=== PATIENT | male | born 1955 | race Caucasian/White ===

== ENCOUNTER → 2018-04-07 | Outpatient (CLI) | payer OTHER ==
[~2018-04-07] MED LIST: BACLOFEN10 MG PO; BALSALAZIDE DI750 MG PO; COUMADIN1 MG PO; DOCUSATE SODIU100 MG PO; FINASTERIDE5 MG PO; HYDROCODON-ACE1 EA11 PO; IOPAMIDOL 370 MG/ML 200 ML INFUS..BTL INJ ONE; LEVAQUIN500 MG PO; LOVENOX60 MG/0.6 SC; MELOXICAM15 MG PO; SODIUM CHLORIDE 0.9% 50ML 50 ML ONE; ULTRAM50 MG PO; XARELTO10 MG PO; eliquis PO
[2018-04-07 10:45] LABS: BLOOD UREA NITROGEN 9 mg/dL (7-26); BUN/CREATININE RATIO 11 (6-25); CREATININE, SERUM 0.84 mg/dL (0.72-1.25); EST GLOMERULAR FILTRATION RATE > 60 ML/MIN (60-)
--- NOTE | 2018-04-07 11:43 | Diagnostic Imaging Report ---
PROCEDURE:CT CHEST WITH CONTRAST COMPARISON:[facility], [place], CT, CT CHEST W, 10/03/2015, 14:37. [facility], [place], CT, CT CHEST W, 09/08/2016, 16:12. INDICATIONS:CHEST PAIN, history of pulmonary emboli TECHNIQUE: Axial CTA images of the chest were obtained from the lung apices to the adrenal glands. Coronal and sagittal reformations were made available for review. 100 cc of contrast was administered. RADIATION DOSE: Total DLP: 576.8 mGy*cm Estimated effective dose: (DLP x 0.014 x size factor) mSv FINDINGS: Vessels:No filling defects in the pulmonary arteries to the segmental level. The main pulmonary artery measures 2.2 cm. The aorta is normal in diameter. Mild part of coronary artery calcifications. Lungs: Right lung: No evidence of nodule or infiltrate. Left lung: No evidence of nodule or infiltrate. Chronic atelectasis/scarring the posterior costophrenic angle is stable. Airways: Normal morphology and widely patent. No bronchial thickening Pleura:No pleural effusion or pneumothorax. Heart \T\ Mediastinum:The heart is normal in size. No pericardial effusion. The esophagus is normal. Lymph nodes: No enlarged axillary, subclavicular, mediastinal, or hilar lymph nodes. Thyroid/base of neck: Unremarkable. Upper abdomen:Multiple diverticula in the visualized colon without associated inflammation. A cyst in segment 4 of the liver is stable and measures 13 mm. The remainder of the visualized structures are unremarkable. Musculoskeletal:Mild degenerative changes of the spine without compression deformities. Fusion plate in the lower cervical spine is intact and stable without evidence of hardware failure. A bone island in the right humeral head is stable. CONCLUSION: 1. No evidence of pulmonary embolus. Stable chronic atelectasis/scarring left lung base. No new findings to explain chest pain. 2. Diverticulosis coli. No evidence of diverticulitis. Dictated by: Matt Andrade M.D. on 04/07/2018 at 11:50 Electronically approved by: Matt Andrade M.D. on 04/07/2018 at 11:50
== END ==
LOC: CT 10:03
PROVIDERS: ATTEND Internal Medicine Critical Care Medicine
DX: R07.9 Chest pain, unspecified (principal); Z86.711 Personal history of pulmonary embolism
CPT/HCPCS: 36415; 71260; 82565; 84520; Q9967

== ENCOUNTER 2021-07-20 10:33 | Emergency (ER) | payer MEDICARE, OTHER ==
[~2021-07-20] VITALS: Ht 175.3 cm; Wt 76.7 kg
[~2021-07-20 10:33] MED LIST changes: -IOPAMIDOL 370 MG/ML 200 ML INFUS..BTL INJ ONE; -SODIUM CHLORIDE 0.9% 50ML 50 ML ONE
[2021-07-20] MEDS ORDERED: FENTANYL CITRATE/PF 100MCG/2 ML INJ IV ONE (11:00)
[2021-07-20] MEDS ORDERED: ONDANSETRON HCL INJ 2MG/ML 2ML 2 MG/ML VIAL IV NR (11:00)
[2021-07-20] MEDS ORDERED: KETOROLAC TROMETHAMINE 30 MG/ML VIAL IV ONE (11:00)
[2021-07-20 11:41] LABS: BASOPHILS % 0.5 % (0.0-1.0); EOSINOPHILS # (AUTO) 0.1 (0.0-0.4); EOSINOPHILS % 1.2 % (0.0-6.0); HEMATOCRIT 46.6 % (38.2-49.6); HEMOGLOBIN 15.2 g/dL (14.0-18.0); LYMPHOCYTES % 22.6 % (18.0-39.1); MEAN CORPUSCULAR HEMOGLOBIN 28.4 pg (28-32); MEAN CORPUSCULAR HGB CONC 32.6 g/dL (31-35); MEAN CORPUSCULAR VOLUME 87.1 fL (81-99); MONOCYTES # (AUTO) 0.6 (0.2-0.8); MONOCYTES % 6.7 % (4.4-11.3); NEUTROPHILS # (AUTO) 5.9 (2.1-6.9); NEUTROPHILS % 68.8 % (38.7-80.0); PLATELET COUNT 277 x10e3/uL (140-360); RED BLOOD COUNT 5.35 x10e6/uL (4.3-5.7); RED CELL DISTRIBUTION WIDTH 13.2 % (11.7-14.4)
[2021-07-20 12:01] LABS: ALBUMIN/GLOBULIN RATIO 1.4 (0.8-2.0); ANION GAP 13.1 mmol/L (8-16); CALCIUM 9.5 mg/dL (8.4-10.2); CREATININE, SERUM 0.84 mg/dL (0.72-1.25); POTASSIUM 4.1 mmol/L (3.5-5.1)
[2021-07-20 12:22] LABS: COLOR,URINE YELLOW (YELLOW); LEUKOCYTE ESTERASE ,URINE NEGATIVE (NEGATIVE)
[2021-07-20 12:23] LABS: CLARITY,URINE SL CLOUDY (CLEAR); KETONES,URINE NEGATIVE (NEGATIVE); NITRITE,URINE NEGATIVE (NEGATIVE); PROTEIN,URINE DIPSTICK NEGATIVE (NEGATIVE); URINE UROBILINOGEN 0.2 mg/dL (0.2 - 1)
[2021-07-20 12:31] LABS: BACTERIA,URINE FEW /HPF; EPITHELIAL CELLS,URINE FEW /LPF; RBC,URINE >50 /HPF (0-5); WBC,URINE (MAN) 0-5 /HPF (0-5)
[2021-07-20] MEDS ORDERED: ULTRAM 50MG50 MG PO (14:02)
[2021-07-20 14:36] VITALS: BP 154/89
== END 2021-07-20 14:37 | disposition home or self-care (01) ==
LOC: ER 10:43
DX: N20.0 Calculus of kidney (principal)
CPT/HCPCS: 36415; 74176; 80053; 81001; 85025; 99283; J1885; J2405; J3010